=== PATIENT | male | born 1950 | race Caucasian/White ===

== ENCOUNTER 2017-09-17 00:12 | Inpatient (IN) | payer MEDICARE ==
--- NOTE | 2017-09-12 17:17 | HISTORY AND PHYSICAL ---
DATE OF ADMISSION: September 17, 2017 IDENTIFICATION/CHIEF COMPLAINT Harshad is a 66-year-old gentleman with the chief complaint of left hip pain. HISTORY OF PRESENT ILLNESS Patient has a long-standing history of left hip arthritis, progressively painful and debilitating and refractory to conservative care. Surgery is indicated to relieve symptoms after failure of nonoperative measures. PAST MEDICAL HISTORY 1. Occasional ectopic heartbeat. 2. Hypertension controlled on medication. 3. Sleep apnea. 4. Reactive airway disease. 5. Chronic prostate and bladder issues. 6. Lumbar disease. 7. Hepatitis C. 8. Clinical depression. PAST SURGICAL HISTORY 1. Prostate operation. 2. Multiple spinal operations. 3. Three right shoulder surgeries. MEDICATIONS 1. Flexeril 10 mg p.o. p.r.n. 2. Lisinopril 20 mg p.o. q.day. 3. Clonazepam 0.5 mg t.i.d. p.r.n. 4. Tramadol 50 mg p.r.n. 5. Ranitidine 150 mg p.o. b.i.d. ALLERGIES 1. LATEX. 2. TAPE. 3. ADHESIVES. SOCIAL HISTORY Notable for smoking a pack of cigarettes a day from [id number]. He chews occasionally. He quit drinking alcohol after 1977 after moderate use. Denies drug use. REVIEW OF SYSTEMS Otherwise negative. FAMILY HISTORY Notable for father with hypertension, presently . PHYSICAL EXAMINATION GENERAL: This is a healthy male. HEENT: Normocephalic, atraumatic. NECK: Supple. LUNGS: Clear. HEART: Regular. ABDOMEN: Soft. ORTHOPEDIC EXAM: Left hip is irritable at the end range of motion. He is still with loss of internal rotation. Hip girdle strength is normal. Skin envelope is intact. Neurovascular function intact. IMAGING Radiographs demonstrate end-stage hip arthritis. ASSESSMENT Left hip end-stage degenerative joint disease, progressively painful and debilitating, refractory to conservative care. PLAN Per patient request, we will proceed with total hip arthroplasty. The nature of this procedure, the risks, benefits, the anticipated rehab course are reviewed. The risks include, but are not limited to , major medical or anesthetic complication, infection, neurovascular injury, blood transfusion, stiffness, scarring, fracture, tendon rupture or instability, leg length discrepancy, implant loosening, migration or failure, persistent or recurrent pain, need for additional surgery and other unforeseen. He understands and wishes to proceed. A signed consent was placed in the chart. No guarantees are given or implied. MTDD
[2017-09-16 15:20] LABS: INR 1.01
[2017-09-17] VITALS (12 sets, daily range): BP systolic 91–132; BP diastolic 45–76
[~2017-09-17] VITALS: Ht 170.2 cm; Wt 121.6 kg
[~2017-09-17 00:12] MED LIST: ATR10 PO; CLON-388 PO; CYC10 PO; DIA5 PO; DULO60CA51 PO; HYDR-389 PO; LANS30CA70 PO; LISI-346 PO; LISI20TA29 PO; PER PO; RANI-366 PO; TAM4 PO; TRA50 PO; TRAM-420 PO
[2017-09-17] MEDS ORDERED: fentaNYL CITR 100 MCG/2 ML AMP ONE ×2 (11:44→15:27)
[2017-09-17] MEDS ORDERED: PROPOFOL EMUL(*) 10MG/ML 20 ML 20 ML ONE (11:45)
[2017-09-17] MEDS ORDERED: LIDOCAINE 2% IV 100 MG/5ML SYR ONE (11:45)
[2017-09-17] MEDS ORDERED: LIDOCAINE/SOD BICARB 8.4% SYR ID ONE (12:30)
[2017-09-17] MEDS ORDERED: VANCOMYCIN IVPB ONE (12:30)
[2017-09-17] MEDS ORDERED: TRANEXAMIC AC 1000 MG/10ML SDV 1,000 MG in DEXTROSE 5% 50 ML BAG 50 ML IV ONE (12:30)
[2017-09-17] MEDS ORDERED: NS 0.9% IVPB ONE (12:30)
[2017-09-17] MEDS ORDERED: NORMOSOL R SOLN(*) 1000 ML BAG 1,000 ML IV PRN ×2 (12:30→16:50)
[2017-09-17] MEDS ORDERED: cloNIDine EPIDUR INJ 100MCG/ML 40 MCG, ROPIVACAINE 0.5% 20 ML VIAL 25 ML, EPINEPHrine H... INJ ONE (12:30)
[2017-09-17] MEDS ORDERED: MIDAZOLAM 2 MG/2 ML VIAL IVP PRN (12:30)
[2017-09-17] MEDS ORDERED: DEXAMETHASONE SOD PHOS 10MG/ML ONE (14:41)
[2017-09-17] MEDS ORDERED: KETAMINE HCL 200 MG/20 ML MDV ONE ×2 (14:41→15:31)
[2017-09-17] MEDS ORDERED: EPHEDRINE SULFATE/NS/PF 50 MG/10 ML SYRINGE ONE ×2 (14:46→15:28)
[2017-09-17] MEDS ORDERED: ONDANSETRON 4 MG/2 ML VIAL ONE (14:46)
[2017-09-17] MEDS ORDERED: VANCOMYCIN 1 GM VIAL ONE (14:51)
[2017-09-17] MEDS ORDERED: FLUSH 10 ML SYR IVP PRN (16:50)
[2017-09-17] MEDS ORDERED: diphenhydrAMINE 25 MG CAP PO PRN (16:50)
[2017-09-17] MEDS ORDERED: BISACODYL 10 MG SUPP PR PRN (16:50)
[2017-09-17] MEDS ORDERED: ZOLPIDEM TARTRATE 5 MG TAB PO PRN (16:50)
[2017-09-17] MEDS ORDERED: diphenhydrAMINE 50 MG/ML VIAL IVP PRN (16:50)
[2017-09-17] MEDS ORDERED: PROMETHAZINE 25 MG/ML 1 ML AMP IVP PRN (16:50)
[2017-09-17] MEDS ORDERED: MAGNESIUM HYDROXIDE* 30ML UDCP PO PRN (16:50)
[2017-09-17] MEDS ORDERED: BENZOCAINE/MENTHOL 1 EACH LOZG PO PRN (16:50)
[2017-09-17] MEDS ORDERED: ACETAMINOPHEN 325 MG TAB PO PRN (16:50)
[2017-09-17] MEDS ORDERED: NORMOSOL R SOLN(*) 1000 ML BAG 1,000 ML IV ONE (16:52)
--- NOTE | 2017-09-17 17:26 | RADIOLOGY IMAGING REPORT ---
FACILITY: [facility] [place] PATIENT NAME: Harshad Zarco : 1950 MR: [id number] V: [id number] EXAM DATE: ORDERING PHYSICIAN: AXEL SAENZ TECHNOLOGIST: Location: [facility] Patient: Harshad Zarco : 1950 Visit/Account:[id number] Date of Sevice: 09/17/2017 Exam type: PELVIS History: S/P TOTAL HIP ARTHROPLASTY LEFT Comparison: None. Findings: There is a left hip arthroplasty that appears in good anatomic alignment on this single AP view. Ski n arianna project just lateral to this postoperative hip. There are mild to moderate joint changes o f the right hip IMPRESSION: 1. As above Report Dictated By: Lakeshia Steele MD at 09/17/2017 5:10 PM Report E-Signed By: Lakeshia Steele MD at 09/17/2017 5:10 PM WSN:[id number]
[2017-09-17] MEDS ORDERED: traMADol 50 MG TAB PO PRN (19:55)
[2017-09-17] MEDS: CELECOXIB 200 MG CAP PO SCH (20:27)
[2017-09-17] MEDS: APAP/HYDROCODONE 325/7.5 TAB PO PRN (20:27)
[2017-09-17] MEDS: RANITIDINE HCL 150 MG TAB PO SCH (20:27)
--- NOTE | 2017-09-17 21:25 | Hospitalist Consultation ---
History of Present Illness Requesting Physician Donald Saenz MD Reason for Consult Post-op Medical management Chief Complaint L-hip pain History of Present Illness Mr. Zarco is a 66 y.o. male with PMH of HTN, MELISSA resolved after losing weight, h/ o JOSIE, childhood Asthma resolved, BPH s/p TURP, Hep.C resolved as per patient, Back pain who underwent L-MEHRDAD by Dr. Saenz. Patient tolerated the procedure. I was asked to manage patient's medical problems during his hospital stay. Patient is doing fine except L-hip pain History Home Meds Reported Medications Tramadol Hcl (TRAMADOL HCL) 50 Mg Tablet, 50 MG PO DAILY Y for PAIN, TAB 09/10/17 Clonazepam (CLONAZEPAM) 0.5 Mg Tab.rapdis, 0.5 MG PO TID, #6 TAB 09/10/17 Acetaminophen/Hydrocodone (HYDROCODON-ACETAMINOPH 7.5-325) 1 Each Ea, 1 EACH PO PRN, EA 09/10/17 Ranitidine Hcl (ZANTAC) 150 Mg Tablet, 150 MG PO BID, TAB 09/10/17 Lisinopril (LISINOPRIL) 20 Mg Tablet, 20 MG PO QDAY, TAB 09/10/17 Discontinued Reported Medications Diazepam (Valium) 5 Mg Tab, 5 MG PO Q8H Y, #20 0 Refills 02/15/09 Oxycodone/Acetaminophen (OXYCODONE/ACETAMINOPHEN 5MG/325 MG) 5 Mg/325 Mg Tab, 1 - 2 TAB PO Q6H Y, #80 0 Refills 02/15/09 Lansoprazole (Prevacid) 30 Mg Capsule.dr, 30 MG PO BID, 0 Refills 02/11/09 Tamsulosin Hcl (Flomax) 0.4 Mg Cap, 0.4 MG PO QDAY, 0 Refills 02/11/09 Cyclobenzaprine Hcl (Flexeril) 10 Mg Tab, 10 MG PO BID, 0 Refills 02/11/09 Atorvastatin (Lipitor) 10 Mg Tab, 10 MG PO DAILY, 0 Refills 02/11/09 Lisinopril (Lisinopril) 10 Mg Tablet, 10 MG PO DAILY, 0 Refills 02/11/09 Duloxetine Hcl (Cymbalta) 60 Mg Capsule.dr, 60 MG PO DAILY, 0 Refills 02/11/09 Allergies: Coded Allergies: adhesive tape (Verified Allergy, Mild, REDNESS, BLISTERS, ITCHING, , ) IF ON MORE THAN 3-4 DAYS Patient History: FH: Alzheimers disease FATHER FH: HTN (hypertension) FATHER Hx Smoking: Yes (QUIT AUGUST 1977) Smoking Status: Former Smoker When Quit Tobacco?: 1978 Caffeine Intake: Coffee, Tea Caffeine/Cups Per Day: 2 CUPS Hx Alcohol Use: No Hx Substance Use Disorder: No History of IV Drug Use: No Review of Systems Constitutional: No Fever, No Weight Loss, No Weight Gain, No Chills Neurological: No Confusion, No Weakness, No Dizziness Cardiovascular: No Chest Pain, No Palpitations Respiratory: No Shortness of Breath, No Cough, No Wheezing Gastrointestinal: No Nausea, No Vomiting, No Diarrhea, No Dysphagia, No Constipation, No Abdominal Pain Genitourinary: No Dysuria, No Hematuria Musculoskeletal: Pain, Impaired Mobility, No Sprain, No Strain Psychiatric: No Depression, No Anxiety Exam Vital Signs Vital Signs Date Time Temp Pulse Resp B/P (MAP) Pulse Ox O2 Delivery O2 Flow Rate FiO2 09/17/17 18:45 97 12 91/62 (72) 94 Nasal Cannula 3.0 09/17/17 18:22 98.0 General Appearance: Alert, Awake, No Acute Distress, Afebrile Neuro: No Gross deficits Eyes: PERRLA ENT: Normal Neck: No Masses Cardiovascular: Normal Rhythm & Peripheral Pulses Respiratory: No Respiratory Distress GI: Abd Soft and Non-Tender Extremities: Soft and Non Tender, Other (L-hip tenderness and decrease ROM) Integumentary: Skin Intact without Lesion / Mass Psych: Alert & Oriented X3, Appropriate Mood & Affect Medical Decision Making Pre-Admit Course Medical Record Review: Yes Assessment and Plan Problems: (1) S/P total hip arthroplasty Status: Acute Assessment & Plan: Management as per surgery Aspirin 325mg as DVTP I will get CBC and BMP in am (2) HTN (hypertension) Status: Chronic Assessment & Plan: I will start his Lisinopril 20mg po qd in am (3) GERD (gastroesophageal reflux disease) Status: Chronic Assessment & Plan: I will restart his Zantac 150mg po bid Time Spent on Plan of Care: < 30 min Copies to: DONALD SAENZ MD Venous Thromboembolism VTE Risk Physician Assess for VTE Risk: Yes Patient's VTE Risk: Low VTE Diagnostic Test 2 Days Prior to Admit: No Antithrombotics Is Pt On Any Antithrombotics?: No Problem Qualifiers (1) S/P total hip arthroplasty: Laterality: left Qualified Codes: Z96.642 - Presence of left artificial hip joint BIBIANA SMITH MD Sep 17, 2017 21:25
[2017-09-17] MEDS: DIAZEPAM 5 MG TAB PO PRN (21:50)
--- NOTE | 2017-09-17 22:24 | OPERATIVE REPORT 1 ---
EVENT DATE: September 17, 2017 SURGEON: Donald Bravo MD ANESTHESIOLOGIST: Pranav Amador MD ANESTHESIA: General plus spinal. EMAIL DEPLOYMENT SPECIALIST: Jorg eL Hansen PA-C PREOPERATIVE DIAGNOSIS Left hip degenerative joint disease. POSTOPERATIVE DIAGNOSIS Left hip degenerative joint disease. PROCEDURE PERFORMED Left total hip arthroplasty. ESTIMATED BLOOD LOSS 200 mL DRAINS None. SPECIMENS None. COMPLICATIONS None apparent. IMPLANTS USED Kourtney system with a Trident PSL size 48 shell with a zero-degree X3 polyethylene liner, a Secur-Fit Max size 9, 132-degree neck angled hip stem with a Biolox Ceramic C-Taper femoral head 36, -2.5. INDICATIONS Harshad is a 66-year-old gentleman with intractable pain and disability related to end-stage hip arthroplasty. Surgery is indicated to relieve symptoms after failure of nonoperative measures. DESCRIPTION OF PROCEDURE Patient was taken to the operating room, placed supine on the operating table. Spinal block was administered by the anesthesiologist. General anesthesia induced. Antibiotics and TXA were administered IV. Patient was positioned in right lateral decubitus on a well-padded pegboard. His pelvis is secured in a vertical position. All bony prominences and superficial nerves were well padded. Left hip girdle and lower extremity were prepped and draped in the usual sterile fashion for hip arthroplasty. A posterolateral incision made, carried down through the skin and deep subcutaneous layer to the deep fascia. Fascia was incised over the tip of the trochanter, extended distally in line with the femur, proximally in line with the augustus fibers. Augustus fibers split bluntly. Trochanteric bursa is excised. The interval between the abductor and external rotator is identified, and the abductor mechanism is protected with a blunt Hohmann. An L capsulotomy/tenotomy is made with the horizontal limb just above the piriformis, extending through the capsule and then releasing vertically and distally as the capsule and external rotators are peeled off the posterior femur, and #2 Vicryl stitches are used to tag the capsule and external rotators for later anatomic reapproximation. Femoral head is dislocated. End-stage arthritis is notable. A 1.5 cm neck cut is made consistent with preoperative templating with an oscillating saw. Femoral head is extracted. Femur is translocated anteriorly. Justina-acetabular retractors are placed with the tips down on bone to avoid injury to critical neurovascular structures. Labrum and pulvinar are excised. A 44 mm reamer is used to medialize through the true medial wall of the acetabulum. This was expanded in 2 mm increments up to 48 where nice rim contact is obtained. The 48 trial has nice ntuo-of-pscc fit. A 49 is used to open the floor of the acetabulum and accommodate the raised rim shell. The wound is then copiously lavaged, and the actual shell is impacted in approximately 40 degrees of lateral opening and 15 degrees of anteversion using the extracorporeal guide, internal bony landmarks, and transverse acetabular ligament to guide socket placement. Socket placement is rock solid. No adjuvant fixation is felt to be needed. The shell is lavaged , and the liner is locked into the shell. Attention is turned to femoral preparation. The superior neck is resected with a gogoRep cutter. A Batsheva awl finds the canal. Tapered reaming is performed up to 9 where good end- osteal contact is obtained. Broaching starts with 6 and works up to 9, taking care to lateralize and follow the chipewwa anteversion of the calcar to about 15 degrees. The 9 broach has nice fit and fill. Trial reduction is performed off this. Good rastafari of the limb length and stability is achievable. The broach is extracted. Surfaces are copiously lavaged. The actual stem is impacted into position and seats at the same height. Various neck lengths are tried. The -2.5 is felt to be optimum for rastafari of stability and limb length. Fournier taper is lavaged and dried, and the Biolox head is impacted onto the Fournier taper. Joint is reduced. Wound is extensively lavaged. Hemostasis is assured. Vancomycin powder is infiltrated throughout the wound due to patient's history of MRSA. Capsule and external rotators are reapproximated anatomically through drill holes in the posterolateral femur. Deep fascia closed distally with #2 Ethibond and proximally with #2 Vicryl. The subcutaneous tissue is lavaged. Hemostasis is assured. A bit of additional vancomycin powder is placed here. The derm is closed with 3-0 Vicryl, skin with surgical arianna. Xeroform and 4 x 4's applied in a dry, sterile dressing and a hip wrap. Patient is rolled supine. Abduction pillow is placed. He is awakened from anesthesia and taken to the recovery room in stable condition having tolerated the procedure well. Plan is for the standard MEHRDAD rehab protocol, weightbearing as tolerated. MTDD
[2017-09-18] VITALS (10 sets, daily range): BP systolic 90–139; BP diastolic 59–85; Ht 170.2 cm; Wt 121.6 kg
[2017-09-18] MEDS: APAP/HYDROCODONE 325/7.5 TAB PO PRN ×5 (00:35→23:35)
[2017-09-18] MEDS ORDERED: NS(*) 0.9% 250 ML BAG 250 ML ONE (02:50)
[2017-09-18] MEDS: VANCOMYCIN ADDVAN 1 GM in NS 250 ML IVPB SCH ×2 (02:52→14:09)
[2017-09-18 03:18] LABS: PLATELET COUNT, AUTOMATED 166 K/uL (150-450)
[2017-09-18] MEDS: CELECOXIB 200 MG CAP PO SCH ×2 (08:03→16:49)
[2017-09-18] MEDS: LISINOPRIL 20 MG TAB PO SCH (08:55)
[2017-09-18] MEDS: ASPIRIN 325 MG TAB PO SCH (08:55)
[2017-09-18] MEDS: RANITIDINE HCL 150 MG TAB PO SCH ×2 (08:55→19:34)
--- NOTE | 2017-09-18 12:54 | Hospitalist Progress Note ---
Subjective Progress Notes Subjective Mr. Zarco is a 66 y.o. male with PMH of HTN, MELISSA resolved after losing weight, h/ o CKD-III, childhood Asthma resolved, BPH s/p TURP, Hep.C resolved as per patient, Back pain who underwent L-MEHRDAD by Dr. Saenz. Patient tolerated the procedure. I was asked to manage patient's medical problems during his hospital stay. Patient is doing fine except L-hip pain 09/18: This morning patient developed mild hypotension and tachycardia without any symptoms and complaint. I discussed the case with Dr. Saenz. Patient was evaluated by me at the bed side. He was awake alert and oriented without any significant complaint of N/V/D/C/SOB/CP/palpitation/diaphoresis/Leg pain etc. His HR was 104, RR 20 and BP was 104/70. He maintained good conversation without any difficulty. His WBC were 12.9, K was 5.4 and BUN/Cr was 32/1.8 with GFR 38ml/min. He has CKD-III. His high K level could be due to Lisinopril in the presence of CKD-III. Patient Complains of: Neurological: No: Confusion, Weakness, Dizziness Cardiovascular: No: Chest Pain, Palpitations Respiratory: No: Cough, Congestion, Shortness of Breath, Wheezing Gastrointestinal: Flatus, No Nausea, No Vomiting Genitourinary: No Dysuria, No Hematuria Musculoskeletal: Impaired Mobility, No: Pain, Sprain, Strain Physical Exam Vital Signs Date Time Temp Pulse Resp B/P (MAP) Pulse Ox O2 Delivery O2 Flow Rate FiO2 09/18/17 08:00 90 Nasal Cannula 09/18/17 07:55 98.4 102 20 104/69 (81) 09/18/17 03:00 2.0 Intake and Output 09/19/17 07:00 Output Total 200 ml Balance -200 ml Output Urine Total 200 ml General Appearance: Alert, Awake, No Acute Distress, Afebrile Neuro: No Gross deficits Eyes: PERRLA Cardiovascular: Other (Tachycardia) Respiratory: No Respiratory Distress, Clear to Auscultation GI: Soft and Non-Tender Extremities: Soft and Non Tender Integumentary: Skin Intact without Lesion / Mass Psych: Alert & Oriented X3, Appropriate Mood & Affect Result Diagram: 09/18/17 0304 09/18/17 0304 Assessment and Plan Problems: (1) S/P total hip arthroplasty Status: Acute Assessment & Plan: Management as per surgery Aspirin 325mg as DVTP I will get CBC and BMP in am (2) HTN (hypertension) Status: Chronic Assessment & Plan: I will start his Lisinopril 20mg po qd in am 09/18: Patient is stable at present without any sign of DVT/APE/ACS etc I will hold Lisinopril for his low BP and high K level I would use Atenolol 25mg po daily for BP and avoid Lisinopril due to his CKD and high K level (3) GERD (gastroesophageal reflux disease) Status: Chronic Assessment & Plan: I will restart his Zantac 150mg po bid 09/18: I would suggest using PPI instead of Zantac due to many interactions with other drugs. Condition stable Time Spent on Plan of Care: < 30 min Copies to: AXEL SAENZ MD Exam Sepsis Risk: No Definite Risk Problem Qualifiers (1) S/P total hip arthroplasty: Laterality: left Qualified Codes: Z96.642 - Presence of left artificial hip joint BIBIANA SMITH MD Sep 18, 2017 12:54
[2017-09-19 03:12] VITALS: BP 140/85
[2017-09-19] MEDS: DIAZEPAM 5 MG TAB PO PRN (03:13)
[2017-09-19] MEDS: APAP/HYDROCODONE 325/7.5 TAB PO PRN (03:14)
[2017-09-19 07:33] VITALS: BP 140/99
[2017-09-19] MEDS: CELECOXIB 200 MG CAP PO SCH (07:39)
[2017-09-19] MEDS ORDERED: HYDR-4308 PO ×2 (08:34→10:11)
[2017-09-19] MEDS: ASPIRIN 325 MG TAB PO SCH (08:44)
[2017-09-19] MEDS: LISINOPRIL 20 MG TAB PO SCH (08:44)
[2017-09-19] MEDS: RANITIDINE HCL 150 MG TAB PO SCH (08:44)
[2017-09-19] MEDS ORDERED: ASPI-757 PO (09:58)
[2017-09-19] MEDS ORDERED: ATEN-65 PO (10:02)
--- NOTE | 2017-09-19 10:06 | Hospitalist Progress Note ---
Subjective Progress Notes Subjective He has no complaints this morning. He is ready to go home. Patient Complains of: Cardiovascular: No: Chest Pain Respiratory: No: Shortness of Breath Physical Exam Vital Signs Date Time Temp Pulse Resp B/P (MAP) Pulse Ox O2 Delivery O2 Flow Rate FiO2 09/19/17 07:38 92 Nasal Cannula 2.0 09/19/17 07:33 98.2 90 16 140/99 (113) Intake and Output 09/20/17 07:00 Intake Total 180 ml Balance 180 ml Intake Oral 180 ml General Appearance: Alert, Awake, No Acute Distress, Afebrile Neuro: No Gross deficits Cardiovascular: Regular Rate and Rhythm Respiratory: No Respiratory Distress, Clear to Auscultation Psych: Alert & Oriented X3, Appropriate Mood & Affect Result Diagram: 09/18/17 03009/18/17 030 Assessment and Plan Problems: (1) S/P total hip arthroplasty Status: Acute Assessment & Plan: Followed by Dr. Bravo. He will be on Aspirin post- operatively for 30 days for DVT prophylaxis. (2) HTN (hypertension) Status: Chronic Assessment & Plan: He is on chronic treatment with Lisinopril. His potassium is 5.4 and has a creatinine of 1.8. We will stop his Lisinopril and switch him to Atenolol 25 mg daily. He will follow up next week with his primary care provider. (3) GERD (gastroesophageal reflux disease) Status: Chronic Assessment & Plan: He is on chronic treatment with Zantac. Exam Sepsis Risk: No Definite Risk Problem Qualifiers (1) S/P total hip arthroplasty: Laterality: left Qualified Codes: Z96.642 - Presence of left artificial hip joint QUINN MARIE HOME THEATER SPECIALIST Sep 19, 2017 10:06
== END 2017-09-19 10:45 | disposition home or self-care (01) | DRG 470 ==
LOC: OR 00:12 → MED 18:15
PROVIDERS: ADMIT Orthopaedic Surgery; ATTEND Orthopaedic Surgery
PROC: 0SRB04Z Replacement of Left Hip Joint with Ceramic on Polyethylene Synthetic Substitute, Open Approach (ICD-10-PCS; principal; 2017-09-17 14:06)
DX: M16.12 Unilateral primary osteoarthritis, left hip (principal); Z68.41 Body mass index [BMI] 40.0-44.9, adult; I12.9 Hypertensive chronic kidney disease with stage 1 through stage 4 chronic kidney disease, or unspecified chronic kidney disease; N40.0 Benign prostatic hyperplasia without lower urinary tract symptoms; N18.3 Chronic kidney disease, stage 3 (moderate); K22.70 Barrett's esophagus without dysplasia; F32.9 Major depressive disorder, single episode, unspecified; E66.01 Morbid (severe) obesity due to excess calories; G47.33 Obstructive sleep apnea (adult) (pediatric); I95.9 Hypotension, unspecified; R00.0 Tachycardia, unspecified; Z91.040 Latex allergy status; Z86.19 Personal history of other infectious and parasitic diseases; Z87.891 Personal history of nicotine dependence; Z90.49 Acquired absence of other specified parts of digestive tract; Z98.1 Arthrodesis status
CPT/HCPCS: 36415; 72170; 82310; 82374; 82435; 82565; 82947; 84132; 84295; 84520; 85025; 85610; 86850; 86900; 86901; 97161; 97165; J0171; J0735; J1100; J1885; J2001; J2250; J2405; J2704; J2795; J3010; J3370; J3490; J7050; J7060

== ENCOUNTER → 2018-12-30 | Outpatient (REF) ==
[2017-09-18 15:13] VITALS: BMI 42.0
[~2018-12-30] MED LIST changes: +ASPI-757 PO; +ATEN-65 PO; +HYDR-654 PO; -RANI-366 PO; +RANI-54 PO
== END ==
LOC: ZZSLMC 12:00
PROVIDERS: ATTEND Surgery
DX: Z02.9 Encounter for administrative examinations, unspecified (principal)
CPT/HCPCS: 88305; 88342